=== PATIENT | female | born 1965 | race Caucasian/White ===

== ENCOUNTER 2019-09-22 04:00 | Emergency (ER) | payer SELFPAY ==
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
--- NOTE | 2019-09-22 04:47 | Diagnostic Imaging Report ---
PATIENT MR#: [id number] PATIENT PATIENT NAME: LYSSA ERICKSON DATE OF : 1965 REFERRING PHYSICIAN: Pauline Herr EXAM DATE: 09/22/2019 ACCESSION NUMBER: [id number] EXAM DESCRIPTION: FACIAL BONES 3 VIEWS OR MORE Facial bones series, 3 images History: Head injury Findings: There is no fracture or abnormal bone production or destruction. Paranasal sinuses are janneth sly normal. Impression: Normal. Read by: Dr. Christofer Morillo Transcribed by: Transcribed Date: Electronically signed by: Dr. Christofer Morillo Date signed: 09/22/2019 4:47:27 AM
[2019-09-22 04:59] VITALS: BP 122/68
== END 2019-09-22 04:55 | disposition home or self-care (01) ==
LOC: ED 04:00
DX: S00.11XA Contusion of right eyelid and periocular area, initial encounter (principal); Y04.0XXA Assault by unarmed brawl or fight, initial encounter; Y92.89 Other specified places as the place of occurrence of the external cause
CPT/HCPCS: 99282; 99283